=== PATIENT | female | born 1960 | race Caucasian/White ===

== ENCOUNTER → 2016-03-20 | Outpatient (CLI) | payer OTHER ==
--- NOTE | 2016-03-20 17:13 | US ---
Renal Sonography Clinical History: 55-year-old female with right-sided flank pain. ICD10 Diagnostic Code: R10.9. Technique: A curvilinear 5 MHz transducer was used to sonographically evaluate the kidneys and the ur inary bladder. Color Doppler is used. Pre- and postvoid imaging of the bladder was also acquired. Comparison study: None. Findings: The right kidney measures 11.5 x 4.5 x 4.5 cm, and there is a right renal cortical thicknes s of 1.2 cm. There is some minimal pelvocaliectasis, without mauri hydronephrosis. There is no solid or cystic renal mass, or perinephric fluid. The left kidney measures 10.6 x 4.3 x 4.4 cm, with a malena l cortical thickness of 1.5 cm. The urinary bladder is moderately distended and uniformly-contoured w ith ureteral jets seen with color Doppler. The prevoid volume is 314 mL, and the postvoid residual is 22 mL. Impression: 1. Minimal right pelvocaliectasis, without mauri hydronephrosis. 2. Normal appearance of the left kidney. 3. Normal appearance of the urinary bladder, with ureteral jets seen with color Doppler. If there is further clinical concern regarding the possibility of an occult nephrolith, unenhanced CT imaging would be a more sensitive means of assessment. Today's ultrasound exam does not exclude the possibility of underlying pyelonephritis.
== END ==
LOC: FIMAGING 08:51
PROVIDERS: ATTEND Physician Assistant
DX: R10.9 Unspecified abdominal pain (principal)

== ENCOUNTER → 2016-04-01 | Outpatient (CLI) | payer OTHER | LOC: FIMAGING 13:43 | PROVIDERS: ATTEND Physician Assistant | DX: R93.8 Abnormal findings on diagnostic imaging of other specified body structures (principal); R10.9 Unspecified abdominal pain; K59.00 Constipation, unspecified ==

== ENCOUNTER → 2016-05-07 | Outpatient (CLI) | payer OTHER | LOC: FIMAGING 09:54 | PROVIDERS: ATTEND Physician Assistant | DX: Z13.820 Encounter for screening for osteoporosis (principal); Z78.0 Asymptomatic menopausal state; Z90.710 Acquired absence of both cervix and uterus; E07.9 Disorder of thyroid, unspecified; Z79.52 Long term (current) use of systemic steroids ==

== ENCOUNTER → 2018-03-22 | Outpatient (CLI) | payer MEDICAID | LOC: FIMAGING 15:19 | PROVIDERS: ATTEND Obstetrics & Gynecology | DX: Z12.31 Encounter for screening mammogram for malignant neoplasm of breast (principal) ==